=== PATIENT | male | born 1985 | race Caucasian/White ===

== ENCOUNTER 2018-01-24 01:31 | Emergency (ER) | payer SELFPAY ==
[~2018-01-24] VITALS: Ht 182.9 cm; Wt 99.8 kg
--- NOTE | 2018-01-24 02:01 | ED GU-Male ---
General Stated Complaint: VOMITING,KIDNEY STONES ON RT & LFT SIDE Source: patient, spouse Exam Limitations: no limitations History of Present Illness Date Seen by Provider: Jan 24, 2018 Time Seen by Provider: 01:50 Initial Comments Patient presents to ER by private conveyance with a chief complaint symptoms right flank pain radiating down into his right belly. He says he has a history of kidney stones and is what feels like. He describes a sharp intermittent colicky. He says it got so bad tonight he couldn't stand. He is not taking anything for pain as he had nausea and vomited earlier but is not having any nausea now. No fevers chills or difficulty urinating. He says he was seen couple days ago for the same similar pains when they started couple days back at [facility] and was told he had some kidney stones within getting anything for it. He has passed kidney stone several times in the past. He does not have anything for pain but he does have some Zofran at home that he has not taken today. He says he has a 1.47 m on the right renal pelvis that he has never seen a urologist for. Allergies and Home Medications Allergies Coded Allergies: amoxicillin (Verified Allergy, Unknown, 01/24/18) Patient Home Medication List Home Medication List Reviewed: Yes Review of Systems Constitutional: No chills, No diaphoresis EENTM: No ear discharge, No ear pain Respiratory: No cough, No short of breath Cardiovascular: No chest pain, No edema Gastrointestinal: see HPI, abdominal pain; No constipation, No diarrhea, No heartburn; nausea, vomiting Genitourinary: denies burning, denies discharge, denies dysuria; other ( infrequent urine output the last 24 hours) Musculoskeletal: No back pain, No muscle pain, No neck pain Past Ljxcmfr-Zfmrwy-Lvceim Hx Patient Social History Alcohol Use: Denies Use Recreational Drug Use: No Smoking Status: Never a Smoker Recent Foreign Travel: No Contact w/Someone Who Travel: No Physical Exam Vital Signs Vital Signs - First Documented 01/24/18 01:52 Temp 98.3 Pulse 81 Resp 20 B/P (MAP) 138/81 (100) Pulse Ox 99 O2 Delivery Room Air Capillary Refill : General Appearance: WD/WN, mild distress HEENT: PERRL/EOMI, pharynx normal Neck: non-tender, normal inspection Cardiovascular: normal peripheral pulses, regular rate, rhythm Respiratory: no respiratory distress, no accessory muscle use Gastrointestinal: normal bowel sounds, non tender, soft Back: normal inspection, no vertebral tenderness, CVA tenderness (R); No CVA tenderness (L) Extremities: normal range of motion, non-tender, normal inspection, no pedal edema, no calf tenderness, normal capillary refill Neurologic/Psychiatric: alert, normal mood/affect, oriented x 3 Progress/Results/Core Measures Suspected Sepsis SIRS Temperature: Pulse: Respiratory Rate: Blood Pressure / Mean: Results/Orders Lab Results Laboratory Tests Test 01/24/18 03:10 Range/Units Urine Color YELLOW Urine Clarity CLEAR Urine pH 6 5-9 Urine Specific [place] 1.010 L 1.016-1.022 Urine Protein NEGATIVE NEGATIVE Urine Glucose (UA) NEGATIVE NEGATIVE Urine Ketones NEGATIVE NEGATIVE Urine Nitrite NEGATIVE NEGATIVE Urine Bilirubin NEGATIVE NEGATIVE Urine Urobilinogen NORMAL NORMAL MG/DL Urine Leukocyte Esterase 1+ H NEGATIVE Urine RBC (Auto) 1+ H NEGATIVE Urine RBC RARE /HPF Urine WBC RARE /HPF Urine Squamous Epithelial Cells 0-2 /HPF Urine Crystals NONE /LPF Urine Bacteria NEGATIVE /HPF Urine Casts NONE /LPF Urine Mucus SMALL H /LPF Urine Culture Indicated NO My Orders Orders - TIMMY NAILS Ketorolac Injection (Toradol Injection) (01/24/18 02:15) Ct Abd/Pelvis Wo(Kidney Stone) (01/24/18 02:01) Ua Culture If Indicated (01/24/18 02:02) Medications Given in ED Current Medications Medications Dose Ordered Sig/Brooke Route Start Time Stop Time Status Last Admin Dose Admin Ketorolac Tromethamine 30 mg ONCE ONCE IM 01/24/18 02:15 01/24/18 02:16 DC 01/24/18 02:13 30 MG Vital Signs/I&O 01/24/18 01:52 Temp 98.3 Pulse 81 Resp 20 B/P (MAP) 138/81 (100) Pulse Ox 99 O2 Delivery Room Air Capillary Refill : Progress Note : Time: 04:01 Progress Note The Toradol helped his pain immensely and he was able to get a small map in all waiting on lab results. CT scan still shows stable looking nephrolithiasis. However his urine does have a little blood in it suggesting he may have just recently passed a small stone. Based on his history seems like he is dehydrated and there is no evidence of obstruction. No evidence of infection. I think would be reasonable to put him on some Flomax and encouraged him to get in with a urologist. He has an appointment with Dr. Nash on the . We will also send him some opiate pain medicine. We have counseled him appropriately on how much to drink and had a use the medications. Diagnostic Imaging Diagonstic Imaging: CT (c/o) Plain Films/CT/US/NM/MRI: abdomen, pelvis Comments Possible mild left hydronephrosis. 13 mm calculus in the left renal pelvis. Right nephrolithiasis. No ureteral calculus. Reviewed: Reviewed by Me Departure Impression Primary Impression: Bilateral nephrolithiasis Disposition: HOME, SELF-CARE Condition: Improved Departure-Patient Inst. Decision time for Depature: 04:03 Referrals: NO,LOCAL PHYSICIAN (PCP) Primary Care Physician MIKE NASH MD Patient Instructions: Kidney Stones (DC) Add. Discharge Instructions: You still have more stones in your kidneys. You don't have any evidence that there obstructed so you are most likely very dehydrated. You should increase your fluid intake significantly until you are urinating multiple times throughout the day. If you have more stones pass and are having pain that cannot be controlled by ibuprofen 800 mg every 8 hours and heating pads then you can use one of the oxycodone every 6 hours. Plan to follow up with a urologist to discuss what other things can be done about your kidney stones. 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 Scripts Tamsulosin HCl (Flomax) 0.4 Mg Cap 0.4 MG PO HS for 14 Days, #14 CAP 0 Refills Prov: TIMMY NAILS 01/24/18 Copy Copies To 1: MIKE NASH MD, TITUS J Jan 24, 2018 02:00
[2018-01-24] MEDS ORDERED: KETOROLAC 30 MG/ML VIAL IM ONE (02:15)
[2018-01-24 03:18] LABS: BILIRUBIN,URINE NEGATIVE (NEGATIVE); CLARITY,URINE CLEAR; COLOR,URINE YELLOW; GLUCOSE, URINE (UA) NEGATIVE (NEGATIVE); KETONES,URINE NEGATIVE (NEGATIVE); LEUKOCYTE ESTERASE ,URINE 1+ (NEGATIVE); NITRITE,URINE NEGATIVE (NEGATIVE); PH,URINE 6 (5-9); PROTEIN,URINE NEGATIVE (NEGATIVE); UROBILINOGEN,URINE NORMAL (NORMAL)
[2018-01-24 03:29] LABS: BACTERIA,URINE NEGATIVE /HPF; RBC,URINE RARE /HPF; SQUAMOUS EPITHELIAL CELL,UR 0-2 /HPF; WBC,URINE RARE /HPF
[2018-01-24] MEDS ORDERED: TAMS0.4C98 PO (04:07)
[2018-01-24] MEDS ORDERED: OXYC-471 PO (04:19)
[2018-01-24 04:21] VITALS: BP 138/81
--- NOTE | 2018-01-24 06:25 | Diagnostic Imaging Report ---
PROCEDURE: CT urinary tract, rule out kidney stone. TECHNIQUE: Multiple contiguous axial images were obtained through the abdomen and pelvis without the use of intravenous contrast. INDICATION:Flank pain. History of kidney stones. COMPARISON: None FINDINGS: Included portions of the lung bases are clear. CT abdomen: A 1.3 x 0.8 cm calculus is identified within the left renal pelvis. There may be minimal left-sided hydronephrosis. Punctate nonobstructive calyceal right renal calculi are also noted. There is no hydroureteronephrosis on the right. No calculi are seen along the course of either ureter. Kidneys have an otherwise unremarkable noncontrast CT appearance. The adrenal glands, spleen, pancreas, and liver have an unremarkable noncontrast CT appearance as well. Small bowel loops are nondistended. Normal appendix is identified. There is no loculated fluid collection, free fluid, nor free air within the abdomen. No abnormal mesenteric or retroperitoneal adenopathy is seen. Bony structures show no acute abnormalities. CT pelvis: Urinary bladder is unopacified. No calculi are seen within the urinary bladder. There is no loculated fluid collection, free fluid, nor free air within the pelvis. No abnormal lymph nodes are seen. Bony structures show no acute abnormalities IMPRESSION: 1. Trace left-sided hydronephrosis, which may be related to 13 mm calculus within the left renal pelvis. 2. Nonobstructive right nephrolithiasis. Dictated by: Dictated on workstation # [id number]
== END 2018-01-24 04:21 | disposition home or self-care (01) ==
LOC: EDUNIT# 01:31 → ER 01:36
DX: N20.0 Calculus of kidney (principal); Z88.0 Allergy status to penicillin; Z87.442 Personal history of urinary calculi
CPT/HCPCS: 74176; 81000; 96372